=== PATIENT | male | born 1955 ===

== ENCOUNTER 2021-05-12 18:47 | Emergency (ER) | payer OTHER, SELFPAY ==
[~2021-05-12] VITALS: Ht 177.8 cm; Wt 79.4 kg
[2021-05-12] MEDS ORDERED: ACETAMINOPHEN 500 MG TAB PO ONE (19:15)
[2021-05-12 19:56] LABS: Basophils # (auto) 0.1 10 ^3/uL (0-0.2); Basophils % (auto) 0.7 % (0.0-2.0); Eosinophils # (auto) 0 10 ^3/uL (0-0.8); Hematocrit 44.5 % (41.0-53.0); Hemoglobin 16.2 g/dL (13.5-17.5); Lymphocytes # (auto) 0.4 10 ^3/uL (0.4-5.4); Lymphocytes % (auto) 4.3 % (10.0-50.0); Mean Corpuscular Hemoglobin 30.5 pg (28.0-32.0); Mean Corpuscular Hgb Conc. 36.4 g/dL (32.0-36.0); Mean Corpuscular Volume 83.8 fL (80.0-100.0); Monocytes # (auto) 0.3 10 ^3/uL (0-1.3); Monocytes % (auto) 3.1 % (0.0-12.0); Neutrophils # (auto) 8.7 10 ^3/uL (1.6-8.6); Neutrophils % (auto) 91.9 % (37.0-80.0); Nucleated Red Blood Cells % 0.2 %; Red Cell Distribution Width 13.3 % (11.8-14.3); White Blood Cell 9.5 10^3/uL (4.4-10.8)
[2021-05-12 20:13] LABS: Albumin 3.2 g/dL (3.4-5.0); Anion Gap 13 (5-15); BUN/Creatinine Ratio 20.8; Blood Urea Nitrogen 26 mg/dL (7-18); Carbon Dioxide 18 mmol/L (21-32); Chloride 94 mmol/L (98-107); GFR African American 74 mL/min; GFR Non-African American 61 mL/min; Glucose 91 mg/dL (74-106); Potassium 3.4 mmol/L (3.5-5.1); Sodium 125 mmol/L (136-145)
[2021-05-12 20:17] LABS: Alanine Aminotransferase 50 U/L (16-61); Alkaline Phosphatase 86 U/L (45-117); Aspartate Aminotransferase 59 U/L (15-37); Bilirubin, Total 0.5 mg/dL (0.2-1.0); Total Protein 7.7 g/dL (6.4-8.2)
[2021-05-12] MEDS ORDERED: methylPREDNISolone SOD SUCC 125 MG/2 ML VL IV ONE (20:30)
[2021-05-12] MEDS ORDERED: POTASSIUM CHL 20 Meq TABLET PO ONE (20:30)
[2021-05-12] MEDS ORDERED: SODIUM CHLORIDE 0.9% 1,000 ML IV ONE (20:30)
[2021-05-12] MEDS ORDERED: DOXYCYCLINE 100MG/250ML 250 ML IV ONE (22:00)
[2021-05-12] MEDS ORDERED: cefTRIAXone 1GM/50ML D5W 50 ML IV ONE (22:00)
[2021-05-13 01:27] VITALS: BP 133/76
== END 2021-05-13 01:28 | disposition home or self-care (01) ==
LOC: ER 18:47
DX: U07.1 COVID-19 (principal); J06.9 Acute upper respiratory infection, unspecified; E86.0 Dehydration
CPT/HCPCS: 36415; 71045; 80053; 84484; 85025; 87426; 93005; 96365; 96368; 96375; 99285; J0696; J2930; J3490; J7030